=== PATIENT | male | born 1945 | race Hispanic/Latino ===

== ENCOUNTER 2017-11-24 12:11 | Outpatient (CLI) | payer MEDICARE ==
[2017-11-24 12:37] LABS: Blood Urea Nitrogen 18 mg/dL (9-20)
--- NOTE | 2017-11-24 16:13 | Cat Scan Report ---
FINAL REPORT EXAM: CT ABDOMEN PELVIS W CON HISTORY: LLQ PAIN TECHNIQUE: Standard enhanced CT of the abdomen and pelvis. Coronal and sagittal reconstruction was also performed. Delayed imaging through the abdomen pelvis was obtained. Contrast: Intravenous and oral contrast given PRIORS: None. FINDINGS: There is diffuse concentric wall thickening with surrounding inflammation involving the entire colon. However, the most significant area of involvement is the descending and sigmoid colon regions. There are few diverticuli in the sigmoid colon. However, the diffuse nature of these findings correlate better with C difficile colitis or Crohn's disease. Within the abdomen, the liver is small in size with a lobulated contour suspicious for underlying cirrhosis. The spleen is also enlarged measuring 16.2 cm in diameter. The pancreas demonstrates thinning and atrophy with subsequent dilatation of the pancreatic duct measuring 6 mm. Gallstone is present in the gallbladder, The adrenal glands and left kidney are unremarkable. Multiple well-defined rounded low-density cysts are seen in the right lobe of the liver and right kidney. The largest is in the central right lobe of the liver measuring 1.6 cm. In the right kidney, the largest is in the upper pole measuring 2 cm. No evidence for retroperitoneal or pelvic lymphadenopathy is seen. The bowel loops have normal caliber. There is redundancy of the ascending colon with the cecum located in the right upper quadrant. No soft tissue mass, fluid collection, or free air is seen within the abdomen or pelvis. The appendix is not visualized. Moderate calcification of the aorta is seen. Within the pelvis, the bladder is nearly collapsed with diffuse wall prominence, probably due to the amount of distention. The prostate is normal. No evidence for mass or lymphadenopathy is seen in the pelvis. Images through the upper abdomen include the lung bases which demonstrates a small right pleural effusion. Bony structures show moderate degenerative disc narrowing at L4 through S1. Large spurs are present anteriorly throughout the lower thoracic and lumbar spine. IMPRESSION: 1. Inflammation and wall thickening involving the colon. Findings are most typical of C difficile colitis or less likely, Crohn's disease. 2. Diverticulosis of the sigmoid colon 3. Hepatic cirrhosis and splenomegaly 4. Atrophy of the pancreas 5. Cysts in the right lobe of the liver and right kidney 6. Small right pleural effusion 7. Cholelithiasis
== END 2017-11-24 12:12 | disposition home or self-care (01) ==
LOC: CT 12:11
PROVIDERS: ATTEND Internal Medicine Gastroenterology
DX: K80.20 Calculus of gallbladder without cholecystitis without obstruction (principal); K57.30 Diverticulosis of large intestine without perforation or abscess without bleeding; K74.60 Unspecified cirrhosis of liver; K86.89 Other specified diseases of pancreas; K76.89 Other specified diseases of liver; J90 Pleural effusion, not elsewhere classified; N28.1 Cyst of kidney, acquired
CPT/HCPCS: 36415; 74177; 82565; 84520; Q9967